=== PATIENT | female | born 1965 | race Caucasian/White ===

== ENCOUNTER 2022-04-23 23:30 | Outpatient (REF) | payer OTHER, SELFPAY ==
[2022-04-24 02:13] LABS: Basophils Absolute Auto 0.03 K/uL (0.00-0.30); Basophils Percent Auto 0.5 % (0.0-3.0); Eosinophils Absolute Auto 0.15 K/uL (0.00-0.50); Eosinophils Percent Auto 2.4 % (0.0-7.0); Hematocrit 44.4 % (33.0-51.0); Hemoglobin* 14.9 gm/dL (12.0-16.0); Lymphocytes Percent Auto 44.5 % (20-44); Mean Corpuscular HGB Conc 34 gm/dL (32-36); Mean Corpuscular Hemoglobin 33 pg (26-34); Mean Corpuscular Volume 97 fL (80-100); Monocytes Percent Auto 6.4 % (0.0-11.0); Neutrophils Absolute Auto 2.87 K/uL (1.7-7.0); Neutrophils Percent Auto 46.2 % (42.0-72.0); Platelet Count* 143 K/uL (140-440); RDW Coefficient of Variation % 11.2 % (11.5-15.5); Red Blood Count 4.57 m/uL (4.00-5.20); White Blood Count* 6.22 K/uL (4.50-11.00)
[2022-04-24 02:14] LABS: Slide Review Reflex No
[2022-04-24 03:12] LABS: Ferritin* 80.5 ng/mL (11.1-264.0)
== END 2022-04-23 23:31 | disposition home or self-care (01) ==
LOC: LAB 23:30
PROVIDERS: PCP Physician Assistant Medical; Visit Provider Internal Medicine Hematology & Oncology
DX: E83.119 Hemochromatosis, unspecified (principal)
CPT/HCPCS: 36415; 82728; 85025

== ENCOUNTER 2022-05-11 13:06 | Outpatient (RCR) | payer OTHER, SELFPAY ==
[2022-01-26 22:54] LABS: Basophils Absolute Auto 0.03 K/uL (0.00-0.30); Basophils Percent Auto 0.4 % (0.0-3.0); Eosinophils Absolute Auto 0.16 K/uL (0.00-0.50); Eosinophils Percent Auto 2.3 % (0.0-7.0); Hematocrit 43.5 % (33.0-51.0); Hemoglobin* 14.7 gm/dL (12.0-16.0); Immature Granulocytes Abs Auto 0.01 K/uL (0.00-0.30); Lymphocytes Absolute Auto 3.01 K/uL (0.90-2.90); Lymphocytes Percent Auto 42.7 % (20-44); Mean Corpuscular HGB Conc 34 gm/dL (32-36); Mean Corpuscular Hemoglobin 32 pg (26-34); Mean Corpuscular Volume 96 fL (80-100); Monocytes Percent Auto 7.4 % (0.0-11.0); Neutrophils Absolute Auto 3.32 K/uL (1.7-7.0); Neutrophils Percent Auto 47.1 % (42.0-72.0); Platelet Count* 147 K/uL (140-440); RDW Coefficient of Variation % 11.5 % (11.5-15.5); Red Blood Count 4.54 m/uL (4.00-5.20); White Blood Count* 7.05 K/uL (4.50-11.00)
[2022-01-26 23:00] LABS: Slide Review Reflex No
--- NOTE | 2022-02-01 14:44 | ONC.NURNOTE ---
Lab results reviewed by nurse and patient has scheduled self for phlebotomy tomorrow per provider parameters next appts set up for 3 months
--- NOTE | 2022-02-15 14:35 | ONC.NURNOTE ---
Patient left a note for Talia. wondering why she hasnt had a TIBC drawn with her ferritin. Per Talia pt hasnt had it ordered in over a year by Oncologist.
--- NOTE | 2022-08-06 13:36 | ONC.NURNOTE ---
Every 3 mth lab orders placed in expanse and paper copy faxed to [facility]
== END 2023-05-05 21:27 | disposition home or self-care (01) ==
LOC: LAB 13:06
PROVIDERS: PCP Physician Assistant Medical; Referring Provider Physician Assistant Medical; Visit Provider Internal Medicine Hematology & Oncology
DX: E83.119 Hemochromatosis, unspecified (principal)
CPT/HCPCS: 36415; 82728; 85025; 99195